=== PATIENT | female | born 1985 | race Caucasian/White ===

== ENCOUNTER 2017-11-02 19:09 | Emergency (ER) | END 2017-11-02 23:46 | disposition home or self-care (01) ==

== ENCOUNTER 2017-11-06 11:05 | Emergency (ER) | END 2017-11-06 14:24 | disposition home or self-care (01) ==

== ENCOUNTER 2017-11-19 00:10 | Inpatient (IN) | END 2017-11-19 15:45 | disposition left against medical advice (07) | DRG 782 ==

== ENCOUNTER 2017-11-23 16:09 | Inpatient (IN) | END 2017-11-24 22:15 | disposition short-term general hospital (02) | DRG 775 ==

== ENCOUNTER 2018-02-09 16:26 | Emergency (ER) | END 2018-02-09 19:14 | disposition home or self-care (01) ==